=== PATIENT | female | born 1975 | race Caucasian/White ===

== ENCOUNTER 2023-07-24 12:01 | Emergency (ER) | payer SELFPAY ==
[2023-07-24 12:06] VITALS: BP 135/89; PULSE 109; RESP 18; TEMP 36.6; O2SAT 100
[2023-07-24 13:16] LABS: Basophils Absolute Auto 0.1 K/mm3 (0.0-0.1); Basophils Percent Auto 0.9 % (0.2-1.2); Eosinophils Percent Auto 0.5 % (0-4.4); Hematocrit 41.8 % (37.0-47.0); Hemoglobin 13.3 g/dL (12.0-15.0); Immature Granulocyte Absolute 0.03 K/mm3 (0.00-0.031); Immature Granulocyte Percent A 0.3 % (0-0.5); Lymphocytes Percent Auto 28.2 % (18.3-44.2); Mean Corpuscular HGB Conc 31.8 g/dl (32-36); Mean Corpuscular Hemoglobin 31.6 pg (26-34); Mean Corpuscular Volume 99.3 fl (80-100); Mean Platelet Volume 9.3 fl (7.4-10.4); Monocytes Absolute Auto 0.8 K/mm3 (0.1-0.6); Monocytes Percent Auto 8.7 % (2.6-8.5); Neutrophils Absolute Auto 5.4 K/mm3 (1.3-6.7); Neutrophils Percent Auto 61.4 % (45.5-73.1); Platelet Count Result 359 k/mm3 (150-375); Red Blood Count 4.21 M/mm3 (4.2-5.4); Red Cell Distribution Width 14.8 % (11.5-14.5); White Blood Count 8.9 K/mm3 (4.5-10.0)
[2023-07-24 13:32] LABS: Ethanol < 10 mg/dL (<10)
--- NOTE | 2023-07-24 13:32 | PC.NURSE ---
Patient has two large duffel bags at bedside. Per our 'Search of Patient' policy, her bags were searched. This was to promote the safety of the environment for the patient, other patients, visitors or staff . Cedric and Amado from security were in the room with me and the patient as I searched the two duffel bags. Duffel bag one was green camo and medium in size, duffel bag two was green and large in size. The contents are as follows: Bag 1: multiple clothing items 1 seashell toiletries head phones x 3 nail file 5 large coins not of monetary value OTC medication bottles wallet nail clippers cellphone phone charge 3 multi use knives 2 box cutters tooth brush tooth paste toiletries belt belt wax phone case 2 phone belt clips wet wipes body oil charging block 2 chargers bag of candy hard drive syringe - no needle 2 pad locks safety glasses feminine pads mini alcohol bottle water bottle Bag 2: socks ink pen word search magazine avocados tennis shoes 1 flip flop sandal multiple clothing items ceramic cup change - coins phone biotechnologist eryn yuen The 3 pocket knives, 2 box cutters, and mini alcohol bottles were confiscated and placed in the safe. The patient was made aware she would get her items back at discharge.
[2023-07-24 13:44] LABS: Alanine Aminotransferase 15 U/L (6-35); Albumin Level 4.3 g/dL (3.5-5.1); Alkaline Phosphatase 79 U/L (38-126); Anion Gap 7 mmol/L (8-16); Aspartate Amino Transferase 17 U/L (14-36); Bilirubin,Total 0.7 mg/dL (0.2-1.3); Blood Urea Nitrogen 11 mg/dL (7-17); Calcium 9.3 mg/dL (8.4-10.2); Carbon Dioxide 22 mmol/L (22-30); Chloride 108 mmol/L (98-107); Estimated CRCL calculation 79 ml/min; Estimated Glomerular Filt Rate > 60; Glucose 99 mg/dL (65-110); Potassium 4.4 mmol/L (3.4-5.0); Sodium 137 mmol/L (137-145)
--- NOTE | 2023-07-24 13:47 | PC.NURSE ---
Security observed patient vaping on camera. Vape confiscated from patient and placed in safe with patient's other confiscated items.
[2023-07-24 14:33] LABS: Appearance Urine Clear (Clear); Bacteria Urine Rare /hpf; Bilirubin Urine Negative (Negative); Blood Urine Negative (Negative); Color Urine Yellow (Yellow); Glucose Urine UA Negative (Negative); Ketones Urine 2+ mg/dL (Negative); Leukocyte Esterase Ur Trace LEU/UL (Negative); Nitrate Urine Negative (Negative); Non Pathogenic Casts 0-2; Protein Urine Negative (Negative); RBC Urine 0-2 /hpf (0-2); Specific Grav Ur 1.011 (1.001-1.035); Squamous Epithelial Cell Urine Occasional /hpf (Few); Urobilinogen Urine 0.2 mg/dL (<2.0); pH Urine 6.5 (5.0-9.0)
[2023-07-24 14:49] LABS: Amphetamine Screen Urine Negative (Negative); Barbiturate Screen Urine Negative (Negative); Benzodiazepines Screen Urine Negative (Negative); Cannabinoid Screen Urine Negative (Negative); Cocaine Screen Urine Negative (Negative); Methadone Screen Urine Negative (Negative); Opiate Screen Urine Negative (Negative); Phencyclidine Screen Urine Negative (Negative)
--- NOTE | 2023-07-24 15:13 | ED.GENADULT ---
HPI - General Adult General Chief complaint: Psychiatric Symptoms Stated complaint: racing thoughts/insomnia Time Seen by Provider: 07/24/23 13:20 History of Present Illness HPI narrative: Presents for 8-year-old female presents emergency department with chief complaint of racing thoughts. Patient reports that she feels as though she needs to be admitted to a mental health facility and she is having her thoughts are racing all the time patient reports that she is homeless as well patient denies suicidal or homicidal ideation. Related Data Allergies Allergy/AdvReac Type Severity Reaction Status Date / Time erythromycin base AdvReac Vomiting Verified 07/24/23 12:03 Review of Systems Review of Systems: A 10 system review of systems was completed on the patient and is negative except for what is stated in the HPI. Nursing and ancillary documentation was reviewed. [facility] Social History Social History Substance use type: unknown Exam Narrative: GENERAL: Well-appearing, well-nourished, and in no acute distress. HEAD: Normocephalic, atraumatic. EYES: PERRLA and EOMI. ENT: Nares clear, no rhinorrhea or epistaxis. Mucous membranes moist. NECK: Supple. CHEST: Clear to auscultation. No respiratory distress. HEART: Regular rate and rhythm. No murmur heard. Normal peripheral pulses. ABDOMEN: Soft, nontender, nondistended, normal active bowel sounds. EXTREMITIES: Normal range of motion. No edema. SKIN: Warm, dry, no rash. NEURO: No focal deficits. Alert and oriented x3. PSYCH: Unusual affect denies suicidal or homicidal ideation. Course Vital Signs Vital signs: Vital Signs Temperature 36.6 C 07/24/23 12:06 Pulse Rate 109 H 07/24/23 12:06 Respiratory Rate 18 07/24/23 12:06 Blood Pressure 135/89 07/24/23 12:06 Pulse Oximetry 100 07/24/23 12:06 Oxygen Delivery Room Air 07/24/23 12:06 Temperature 36.6 C 07/24/23 12:06 Pulse Rate 109 H 07/24/23 12:06 Respiratory Rate 18 07/24/23 12:06 Blood Pressure 135/89 07/24/23 12:06 Pulse Oximetry 100 07/24/23 12:06 Oxygen Delivery Room Air 07/24/23 12:06 Medical Decision Making MDM Narrative Medical decision making narrative: Differential diagnosis includes substance abuse, psychiatric disorder, Laboratory studies were obtained on the patient and showed a normal CBC CMP was within normal limits urinalysis showed trace leukocyte esterase and 6-10 white blood cells in the urine toxicology was negative ETOH was negative Patient is medically clear for psychiatric evaluation referral transferred admission Patient was seen by crisis in the emergency department and cleared for outpatient follow-up. Vital Signs Vital Signs: Vital Signs Temperature 36.6 C 07/24/23 12:06 Pulse Rate 109 H 07/24/23 12:06 Respiratory Rate 18 07/24/23 12:06 Blood Pressure 135/89 07/24/23 12:06 Pulse Oximetry 100 07/24/23 12:06 Oxygen Delivery Room Air 07/24/23 12:06 Temperature 36.6 C 07/24/23 12:06 Pulse Rate 109 H 07/24/23 12:06 Respiratory Rate 18 07/24/23 12:06 Blood Pressure 135/89 07/24/23 12:06 Pulse Oximetry 100 07/24/23 12:06 Oxygen Delivery Room Air 07/24/23 12:06 Lab Data 07/24/23 13:06 07/24/23 13:06 Labs: Lab Results 07/24/23 07/24/23 07/24/23 Range/Units 13:06 14:18 15:35 WBC 8.9 (4.5-10.0) K/mm3 RBC 4.21 (4.2-5.4) M/mm3 Hgb 13.3 (12.0-15.0) g/dL Hct 41.8 (37.0-47.0) % MCV 99.3 (80-100) fl MCH 31.6 (26-34) pg MCHC 31.8 L (32-36) g/dl RDW 14.8 H (11.5-14.5) % Plt Count 359 (150-375) k/mm3 MPV 9.3 (7.4-10.4) fl Immature Gran % (Auto) 0.3 (0-0.5) % Neut % (Auto) 61.4 (45.5-73.1) % Lymph % (Auto) 28.2 (18.3-44.2) % Navarro % (Auto) 8.7 H (2.6-8.5) % Eos % (Auto) 0.5 (0-4.4) % Baso % (Auto) 0.9 (0.2-1.2) % Lymp
[2023-07-24 15:28] LABS: Add Urine Microscopic? YES
[2023-07-24 15:30] VITALS: BP 126/80; PULSE 74; RESP 16; TEMP 36.4; O2SAT 100
--- NOTE | 2023-07-24 15:45 | PC.NURSE ---
This RN notified patient visualized on camera putting dropper of unknown substance under her tongue. Patient handed over dropper bottle of CBD.
[2023-07-24 16:16] LABS: Influenza A QL RT-PCR Negative (Negative); Influenza B QL RT-PCR Negative (Negative); RSV RNA, RT-PCR Negative (Negative); SARS-CoV-2 RNA PCR Negative (Negative)
--- NOTE | 2023-07-24 16:48 | PC.NURSE ---
Patient reports she arranged a safe ride to pick her up, but will not disclose who to this RN. Patient states the ride will take her to a safe place to stay. Patient unwilling to stay for paperwork. Patient reports she does not want any of her locked up belongings back.
--- NOTE | 2023-07-24 17:00 | PC.NURSE ---
Suad with Crisis up to desk stating patient back in lobby and requesting cab voucher to homeless detention personal affects from the safe. Suad told to have patient wait in lobby for cab voucher. Julio in care coordination called for cab voucher to [facility].
--- NOTE | 2023-07-24 17:27 | PC.NURSE ---
Patient found in ambulance bay. Security with patient at this time. Patient told to go back to lobby to wait for cab. Patient told she cannot try to get in the ambulances. Patient agreeable.
--- NOTE | 2023-07-24 17:27 | PC.NURSE ---
Pneum[employer] System Conveyor Operator cab called on behalf on patient. Voucher walked out to patient in lobby vestibule. It was reiterated to patient that she must stay in vestibule and wait for cab. Patient told swatch checker cab gave a 30-40 min ETA d/t shift change. ED security asked to sit with patient to ensure she did not attempt to get into another ambulance or miss her cab rib. Patient agreeable.
== END 2023-07-24 16:54 | disposition home or self-care (01) ==
PROVIDERS: Emergency Provider Emergency Medicine
DX: F32.A Depression, unspecified (principal); Z59.00 Homelessness unspecified; Z11.52 Encounter for screening for COVID-19; R82.998 Other abnormal findings in urine
CPT/HCPCS: 36415; 80053; 80307; 81001; 81025; 84443; 85025; 87086; 87088; 87637; 99284